=== PATIENT | male | born 1955 | race Caucasian/White ===

== ENCOUNTER 2016-03-16 11:22 | Inpatient (IN) | payer OTHER ==
[~2016-03-16] VITALS: Ht 177.8 cm; Wt 98.1 kg
[~2016-03-16 11:22] MED LIST: ABILIFY2 MG PO; ARIPIPRAZOLE2 MG PO; ARIPIPRAZOLE5 MG PO; ARTHROTEC 751 TABLET PO; BUSPAR15 MG PO; BUSPAR7.5 MG PO; CENTRUM SILVER1 EAC3 PO; CYMBALTA30 MG PO; CYMBALTA60 MG PO; GLIPIZIDE PO; GLUCAPHAGE; GLUCOPHAGE500 MG PO; GLUCOTROL10 MG PO; HYDROCODON-ACE1 EAC7 PO; JANUVIA100 MG PO; LANTUS (UNITS)1 UNIT IV; LEVEMIR FL100 UNITS/ SC; LEVOFLOXACIN750 MG PO; LIPITOR80 MG PO; LISINOPRIL; LYRICA75 MG PO; MIRTAZAPINE15 MG PO; MIRTAZAPINE30 MG PO; NOVOLOG PE100 UNITS/ IJ; NOVOLOG PE100 UNITS/ SC; PRINIVIL10 MG PO; PROBIOTIC1 EAC3 PO; REMERON15 M2 PO; SERTRALINE HCL25 MG PO; SERTRALINE HCL50 MG PO; VISINE A.C300 DROP/1 BOTH EYES; VITAMIN B COMP1 EACH PO; VITAMIN D31000 UNI2 PO; ZANTAC
[2016-03-16] MEDS ORDERED: LEVEMIR FL100 UNIT/1 SC (12:25)
[2016-03-16] MEDS ORDERED: METFORMIN HCL500 MG PO (12:25)
[2016-03-16 13:18] LABS: BASOPHIL COUNT 0.1 K/uL (0-0.1); EOSINOPHIL (%) 1.5 % (0-5); EOSINOPHIL COUNT 0.1 K/uL (0-0.3); HEMATOCRIT 41.1 % (38.0-50.0); IMMATURE GRANULOCYTE (%) 0.3 % (0.0-0.7); LYMPHOCYTE COUNT 1.9 K/uL (1.0-2.8); MCH 30.3 PG (29.0-34.0); MCHC 34.3 G/DL (30.0-36.0); MCV 88.4 FL (86-99); MONOCYTE (%) 5.8 % (3-12); MONOCYTE COUNT 0.4 K/uL (0-0.8); NEUTROPHIL (%) 64.5 % (45-76); NEUTROPHIL COUNT 4.6 K/uL (1.8-6.4); PLATELET COUNT 234 K/uL (156-360); RBC DIS.WIDTH-CV 13.1 % (11.8-14.6); RBC DIS.WIDTH-SD 41.9 % (39-53); RED BLOOD COUNT 4.65 M/uL (4.00-5.50); WHITE BLOOD COUNT 7.1 K/uL (4.1-10.2)
[2016-03-16 13:43] LABS: CHLORIDE 101 mEq/L (99-109); POTASSIUM 4.2 mEq/L (3.7-5.4); SODIUM 136 mEq/L (136-147)
[2016-03-16 13:45] LABS: GLUCOSE 277 mg/dL (70-99)
[2016-03-16 13:46] LABS: ANION GAP 9 MEQ/L (2-14)
[2016-03-16 13:48] LABS: SERUM ETHYL ALCOHOL < 10 mg/dL
[2016-03-16 13:49] LABS: GFR ESTIMATE (CALCULATED) > 59 mL/min/
[2016-03-16 13:50] LABS: UREA NITROGEN (BUN) 13 mg/dL (9-23)
[2016-03-16 15:13] LABS: ADD MIUA? YES; BILIRUBIN NEGATIVE; BLOOD NEGATIVE; COLOR YELLOW ((YELLOW)); GLUCOSE (STRIP) >=500; KETONES 5; LEUKOCYTES TRACE; NITRITE NEGATIVE; PROTEIN (STRIP) NEGATIVE; SPECIFIC GRAVITY 1.011 (1.000-1.030)
[2016-03-16 15:14] LABS: BACTERIA RARE /HPF; EPITHELIAL CELLS RARE /HPF; MUCUS NONE SEEN /LPF; RED BLOOD CELLS 0-5 /HPF (0-5)
[2016-03-16 15:15] LABS: AMPHETAMINE NEGATIVE (500 ng/mL); BARBITURATES NEGATIVE (200 ng/mL); BENZODIAZEPINES NEGATIVE (150 ng/mL); CASTS NONE SEEN /LPF; COCAINE NEGATIVE (150 ng/mL); CRYSTALS NONE SEEN; INTERNAL CONTROLS VALID? YES; METHADONE NEGATIVE (200 ng/mL); METHAMPHETAMINE NEGATIVE (500 ng/mL); OPIATES (MORPHINE) NEGATIVE (100 ng/mL); OXYCODONE NEGATIVE (100 ng/mL); PHENCYCLIDINE NEGATIVE (25 ng/mL); PROPOXYPHENE NEGATIVE (300 ng/mL); THC CANNABINOIDS NEGATIVE (50 ng/mL); TRICYCLIC ANTIDEPRESSANTS NEGATIVE (300 ng/mL)
[2016-03-16 16:31] VITALS: BP 111/64
[2016-03-17 07:49] LABS: POINT-OF-CARE METER ID UU13113830; POINT-OF-CARE USER ID BHSTSA
[2016-03-17 07:50] VITALS: BP 102/69
[2016-03-17 10:56] VITALS: BP 132/70
[2016-03-17 14:52] LABS: POINT-OF-CARE METER ID UU13113830
[2016-03-17 15:32] VITALS: BP 131/66
[2016-03-17 21:41] LABS: POINT-OF-CARE METER ID UU13113830; POINT-OF-CARE USER ID ENVTLS63
[2016-03-18 06:33] LABS: POINT-OF-CARE METER ID UU13113830; POINT-OF-CARE USER ID ENVTLS63
[2016-03-18 08:06] VITALS: BP 111/75
[2016-03-18 15:21] VITALS: BP 121/71
[2016-03-19 06:28] LABS: POINT-OF-CARE METER ID UU13113830; POINT-OF-CARE USER ID ENVTLS63
[2016-03-19 07:28] VITALS: BP 134/77
[2016-03-19 15:39] VITALS: BP 132/75
[2016-03-19 20:50] LABS: POINT-OF-CARE METER ID UU13113830
[2016-03-20 06:36] LABS: POINT-OF-CARE METER ID UU13113830
[2016-03-20 08:07] VITALS: BP 103/70
[2016-03-20] MEDS ORDERED: REMERON15 M2 PO (11:08)
== END 2016-03-20 15:18 | disposition home or self-care (01) | DRG 885 ==
LOC: EME 11:22 → EDOF 14:50 → 1WEST 14:50
PROVIDERS: Emergency Medicine; Psychiatry & Neurology Psychiatry
DX: F33.2 Major depressive disorder, recurrent severe without psychotic features (principal); F60.7 Dependent personality disorder; R45.851 Suicidal ideations; E11.40 Type 2 diabetes mellitus with diabetic neuropathy, unspecified; Z98.84 Bariatric surgery status; M21.372 Foot drop, left foot; K21.9 Gastro-esophageal reflux disease without esophagitis; G47.30 Sleep apnea, unspecified
CPT/HCPCS: 80048; 81003; 82948; 85025; 90839; 97150 GO; 97166 GO; 99281; 99285; G0480